=== PATIENT | female | born 2000 | race Caucasian/White ===

== ENCOUNTER 2022-02-26 16:48 | Inpatient (IN) | payer OTHER ==
[~2022-02-26] VITALS: Ht 167.6 cm; Wt 87.5 kg
[2022-02-26] MEDS ORDERED: FERROUS SULFAT325 M2 PO (17:35)
[2022-02-26] MEDS ORDERED: FLINTSTONES1 EAC1 PO (17:35)
[2022-02-26 17:42] LABS: RED BLOOD COUNT 3.64 M/UL (4.00-5.10); WHITE BLOOD COUNT 8.8 K/UL (4.5-11.0)
[2022-02-27] MEDS ORDERED: HYDROCODON-ACE1 EAC4 PO (20:04)
[2022-02-27] MEDS ORDERED: COLACE 100MG C100 MG PO (20:04)
[2022-02-27] MEDS ORDERED: IBUPROFEN800 MG PO (20:04)
[2022-02-28 02:10] LABS: HEMOGLOBIN 9.3 gm/dl (12.3-15.3)
== END 2022-03-01 18:47 | disposition home or self-care (01) | DRG 806 ==
LOC: GENOP 16:48 → OB 17:05
PROVIDERS: Obstetrics & Gynecology; ADMIT Obstetrics & Gynecology
PROC: 10E0XZZ Delivery of Products of Conception, External Approach (ICD-10-PCS; principal; 2022-02-27)
PROC: 0KQM0ZZ Repair Perineum Muscle, Open Approach (ICD-10-PCS; 2022-02-27)
PROC: 10907ZC Drainage of Amniotic Fluid, Therapeutic from Products of Conception, Via Natural or Artificial Opening (ICD-10-PCS; 2022-02-27)
PROC: 3E033VJ Introduction of Other Hormone into Peripheral Vein, Percutaneous Approach (ICD-10-PCS; 2022-02-27)
PROC: 4A1H7CZ Monitoring of Products of Conception, Cardiac Rate, Via Natural or Artificial Opening (ICD-10-PCS; 2022-02-27)
PROC: 10H073Z Insertion of Monitoring Electrode into Products of Conception, Via Natural or Artificial Opening (ICD-10-PCS; 2022-02-27)
PROC: 0UH97HZ Insertion of Contraceptive Device into Uterus, Via Natural or Artificial Opening (ICD-10-PCS; 2022-02-27)
DX: O99.02 Anemia complicating childbirth (principal); D62 Acute posthemorrhagic anemia; Z37.0 Single live birth; Z3A.39 39 weeks gestation of pregnancy; O99.344 Other mental disorders complicating childbirth; Z20.822 Contact with and (suspected) exposure to COVID-19; B08.1 Molluscum contagiosum; O66.0 Obstructed labor due to shoulder dystocia; O99.892 Other specified diseases and conditions complicating childbirth; F41.9 Anxiety disorder, unspecified; Z28.310 Unvaccinated for COVID-19; O70.1 Second degree perineal laceration during delivery
CPT/HCPCS: 36415; 81001; 82800; 85014; 85018; 85025; 90471; 90715; J2590; J7120